=== PATIENT | male | born 1940 | race Caucasian/White ===

== ENCOUNTER 2016-02-27 10:36 | Day surgery (SDC) | payer MEDICARE, OTHER ==
[2016-02-21 15:20] VITALS: BMI 31.7
[~2016-02-27 10:36] MED LIST: ALBUTEROL NEB (CONC) 2.5 MG/0.5 ML INHALATION ONE; ATROPINE SULFATE 0.4 MG/ML 1 ML VIAL IM ONE; LACTATED RINGERS 1,000 ML IV ONE; LIDOCAINE 2% (PF) 20 MG/ML 10ML INHALATION ONE; Pre Op ABX Message 1 EACH MISC MISCELLANE ONE
[2016-02-27 11:18] VITALS: RESP 18; TEMP 97
[2016-02-27 11:26] LABS: Glucose,Whole Blood 161 mg/dL (75-99)
[2016-02-27] MEDS: LACTATED RINGERS 1,000 ML IV SCH ×2 (11:27→11:56)
[2016-02-27] MEDS ORDERED: PROPOFOL 10 MG/ML 20 ML VIAL IV ONE (11:57)
[2016-02-27] MEDS ORDERED: LIDOCAINE 1% INJ 10MG/ML (20 ML MDV) ONE (11:57)
[2016-02-27] MEDS ORDERED: LIDOCAINE 2% INJ 20 MG/ML INTRATRACH ONE (12:07)
[2016-02-27 12:41] VITALS: BP 117/72; PULSE 90
--- NOTE | 2016-02-27 21:35 | PCN ---
DATE OF PROCEDURE: PROCEDURE: Bronchoscopy, airway examination and therapeutic lavage without bronchoalveolar lavage. PREOPERATIVE DIAGNOSIS: Possible right tracheal lesion. POSTOPERATIVE DIAGNOSIS: Possible right tracheal lesion. There was informed consent. There was universal timeout. WALLPAPER PRINTER HELPER provided IV conscious sedation. After the patient was adequately sedated and being fully monitored, the bronchoscope was inserted through the right nostril. It passed through the right nasopharynx into the oropharynx. The hypopharynx was identified and topicalized. The hypopharyngeal structures, including the anterior commissure, true cords, false cords, arytenoids, piriform sinuses, right and left valleculae and epiglottis all appeared normal. We took pictures. We saw nothing in the area of the hypopharynx of any suspicion. Next, after topicalization, the bronchoscope was pushed through the glottic opening into the trachea. The trachea was thoroughly evaluated. There was no lesion noted. There was some indication that there might be a tracheal lesion on the right side. There was nothing seen there. We looked very thoroughly in the subglottic region. The rest of the trachea was normal. Tracheal kevin was normal. Right and left mainstem were topicalized. The right upper lobe and its 3 segments, the right middle lobe and its 2 segments, the right lower lobe and its 5 segments, the left upper lobe proper and its 2 segments, the lingula and its 2 segments, and the left lower lobe and its 4 segments were all normal. There were minimal secretions. There was no dominant mass or tumor. The mucosa was normal. There was no erythema or hyperemia. No BAL was done. The patient tolerated the procedure well and the bronchoscope was withdrawn. On the way out, though, we again looked at the trachea and the vocal cords and hypopharynx, and again found nothing.
== END 2016-02-27 13:17 | disposition home or self-care (01) ==
LOC: ORWHC2ENDO 10:36
PROVIDERS: ATTEND Internal Medicine Critical Care Medicine
DX: J39.8 Other specified diseases of upper respiratory tract (principal); I10 Essential (primary) hypertension; E11.9 Type 2 diabetes mellitus without complications; N40.0 Benign prostatic hyperplasia without lower urinary tract symptoms; M10.9 Gout, unspecified; Z85.038 Personal history of other malignant neoplasm of large intestine; Z79.84 Long term (current) use of oral hypoglycemic drugs; Z79.899 Other long term (current) drug therapy; Z87.891 Personal history of nicotine dependence
CPT/HCPCS: 94640; 31622; J2001 ×3; J0461; J2704; 31624; 99153

== ENCOUNTER → 2022-02-18 | Outpatient (CLI) | payer MEDICARE ==
--- NOTE | 2022-02-18 08:51 | CT ---
EXAMINATION TYPE: CT chest abdomen wo con DATE OF EXAM: 02/18/2022 COMPARISON: 01/05/2016 HISTORY: 81-year-old male R63.4, R94.4, abnormal weight loss TECHNIQUE: Contiguous axial scanning of the chest and abdomen without IV contrast. Coronal and sagitt al reconstructions performed. CT DLP: 692.4 mGycm Automated exposure control for dose reduction was used. FINDINGS: CHEST: Heart normal size without pericardial effusion. Scattered three-vessel coronary artery calcifications are present. Mild episodic arch calcifications which can been charged with a branching anatomy. The patient's left arm is down. There is degenerative change in both shoulders. Atrophy of the right infraspinatus muscle suggesting rotator cuff tear. No thoracic lymphadenopathy by CT size criteria. Prominent dependent atelectasis. Mild centrilobular emphysema. No consolidation or pleural effusion. ABDOMEN: There is a small hiatal hernia. Noncontrast images of the liver, gallbladder, adrenal glands, left ki dney, spleen, and pancreas show no gross abnormality. There is some mild thickening and possible that stranding along the second portion of the duodenum wh ich should be correlated clinically such as for underlying duodenitis or peptic ulcer disease. Direct visualization clinically indicated. Previous ventral abdominal wall mesh repair. Mild atherosclerotic calcifications throughout the abdominal aorta without aneurysm. No dilated small bowel, free fluid, or free air. No mesenteric or retroperitoneal lymphadenopathy. Normal appendix. Moderate stool burden. No pericolic inflammatory change. Pelvis not imaged. BONES: DISH within the mid and lower thoracic spine. Advanced spondylotic change throughout the lumbar spine with degenerative disc disease, Baastrup's disease, and hypertrophic facet arthropathy throughout. D egenerative grade 1 retrolisthesis L1-L2. There is moderate focal spinal canal stenoses L1-L2, L2-L3, L4-L5, and L5-S1. IMPRESSION: CHEST: 1. COPD WITH MILD EMPHYSEMA. CAD WITH 3 VESSEL CORONARY ARTERY CALCIFICATIONS. 2. MILD DEPENDENT ATELECTASIS IN THE LUNGS. NO ACUTE PULMONARY PROCESS. 3. DEGENERATIVE CHANGE AT BOTH GLENOHUMERAL JOINTS. SUSPECT CHRONIC FULL-THICKNESS TEAR OF THE RIGHT INFRASPINATUS TENDON. ABDOMEN: 4. Small hiatal hernia and moderate stool burden. Pelvis not imaged. 5. The appearance of wall thickening and fat stranding along the second portion of the duodenum. This should be correlated clinically such as for underlying duodenitis or significant peptic ulcer diseas e. Direct visualization as clinically indicated.
== END | disposition home or self-care (01) ==
LOC: RADCTMAIN 07:28
PROVIDERS: ATTEND Family Medicine
DX: J43.9 Emphysema, unspecified (principal); I25.10 Atherosclerotic heart disease of native coronary artery without angina pectoris; J98.11 Atelectasis; K44.9 Diaphragmatic hernia without obstruction or gangrene; R63.4 Abnormal weight loss; R94.4 Abnormal results of kidney function studies; R19.5 Other fecal abnormalities
CPT/HCPCS: 71250; 74150

== ENCOUNTER → 2022-06-13 | Outpatient (CLI) | payer MEDICARE ==
[2022-06-13 09:40] LABS: Partial Thromboplastin Time 23.9 sec (22.0-30.0); Prothrombin Time 10.7 sec (9.0-12.0)
[2022-06-13 15:38] LABS: Appearance,Urine Clear (Clear); Bilirubin,Urine Negative (Negative); Blood,Urine Negative (Negative); Color,Urine Yellow (Yellow); Ketones,Urine Negative (Negative); Nitrite,Urine Negative (Negative); Specific Gravity,Urine 1.018 (1.001-1.030)
[2022-06-13 15:45] LABS: Bacteria,Urine None Seen /HPF (None Seen)
[2022-06-13 15:55] LABS: African American GFR (CKD) 53.4 (60.0-200.0); Albumin 4.5 g/dL (3.8-4.9); Albumin/Globulin Ratio 1.42 (1.60-3.17); BUN/Creat Ratio 17.8 Ratio (12.00-20.00); Blood Urea Nitrogen 25.1 mg/dL (9.0-27.0); Calcium 10.5 mg/dL (8.7-10.3); Carbon Dioxide 23.8 mmol/L (20.0-27.5); Globulin 3.2 g/dL (1.6-3.3); Non-African American GFR(CKD) 46.1 (60.0-200.0); Potassium 4.6 mmol/L (3.5-5.5); Total Bilirubin 0.3 mg/dL (0.30-1.20); Total Protein 7.6 g/dL (6.2-8.2)
[2022-06-13 16:26] LABS: HCT 45.3 % (39.6-50.0); HGB 14.4 g/dL (13.0-17.0); MCH 29.9 pg (27.0-32.0); MCHC 31.8 g/dL (32.0-37.0); MCV 94.2 fL (80.0-97.0); Mean Platelet Volume 11.2 fL (9.5-12.2); NRBC Per 100 WBC 0 /100 WBCS (0.0-0.0); Platelet Count 219 X 10*3/uL (140-440); RBC 4.81 X 10*6/uL (4.40-5.60); RDW 14.4 % (11.5-14.5)
== END | disposition home or self-care (01) ==
LOC: LABPAT 08:36
PROVIDERS: ATTEND Orthopaedic Surgery Sports Medicine
DX: Z01.812 Encounter for preprocedural laboratory examination (principal); M19.012 Primary osteoarthritis, left shoulder
CPT/HCPCS: 80053; 81001; 85027; 85610; 85730; 87070

== ENCOUNTER 2022-07-11 05:40 | Day surgery (SDC) | payer MEDICARE ==
[2022-07-11] MEDS ORDERED: DEXAMETHASONE SOD PHOSPHATE 4 MG/ML 1 ML VIAL IV ONE (05:51)
[2022-07-11] MEDS ORDERED: fentaNYL (PF) 50 MCG/ML 2 ML AMP IV PRN (05:51)
[2022-07-11] MEDS ORDERED: ONDANSETRON 4 MG/2 ML VIAL IVP ONE (05:51)
[2022-07-11] MEDS: LACTATED RINGERS 1,000 ML IV SCH ×3 (05:59→17:20)
[2022-07-11 06:22] LABS: Glucose,Whole Blood 127 mg/dL (70-110)
[2022-07-11] MEDS ORDERED: MIDAZOLAM 2 MG/2 ML VIAL IVP ONE (06:36)
[2022-07-11] MEDS ORDERED: PHENYLEPHRINE-0.9% NACL SYG 1,000 MCG/10 ML SYRINGE ONE (07:10)
[2022-07-11] MEDS ORDERED: GLYCOPYRROLATE 0.2 MG/ML 2 ML VIAL ONE (07:10)
[2022-07-11] MEDS ORDERED: SODIUM CHLORIDE 0.9% 100 ML BAG ONE (07:10)
[2022-07-11] MEDS ORDERED: ceFAZolin 1,000 MG VIAL ONE (07:10)
[2022-07-11] MEDS ORDERED: ePHEDrine 50 MG/ML 1 ML VIAL ONE (07:10)
[2022-07-11] MEDS ORDERED: LIDOCAINE 2% INJ 20 MG/ML (2 ML VIAL) ONE (07:10)
[2022-07-11] MEDS ORDERED: PROPOFOL 10 MG/ML 20 ML VIAL IV ONE (07:10)
[2022-07-11] MEDS ORDERED: NEOSTIGMINE 1 MG/ML 10 ML VIAL ONE (07:10)
[2022-07-11] MEDS ORDERED: SUCCINYLCHOLINE CHLORIDE 200 MG/10 ML VIAL IV ONE (07:10)
[2022-07-11] MEDS ORDERED: TRANEXAMIC ACID IN NACL,ISO-OS 1,000 MG/100 ML BAG ONE (07:10)
[2022-07-11] MEDS ORDERED: ROCURONIUM 10 MG/ML (5 ML VIAL) IV ONE (07:10)
[2022-07-11] MEDS ORDERED: DEXAMETHASONE SOD PHOSPHATE 4 MG/ML 1 ML VIAL ONE (07:10)
[2022-07-11] MEDS ORDERED: PROCHLORPERAZINE SUPPOSITORY 25 MG SUPP RECTAL PRN (07:16)
[2022-07-11] MEDS ORDERED: METOCLOPRAMIDE 5 MG/ML 2 ML VIAL IVP PRN (07:16)
[2022-07-11] MEDS ORDERED: diphenhydrAMINE 25 MG CAP PO PRN (07:16)
[2022-07-11] MEDS ORDERED: HYDROcodone/APAP 5-325MG 1 EACH TAB PO PRN (07:16)
[2022-07-11] MEDS ORDERED: SENNOSIDES-DOCUSATE SODIUM 1 EACH TAB PO PRN (07:16)
[2022-07-11] MEDS ORDERED: HYDROmorphone 0.5 MG/0.5 ML SYRINGE IVP PRN ×3 (07:16)
[2022-07-11] MEDS ORDERED: ONDANSETRON 4 MG/2 ML VIAL IVP PRN (07:16)
[2022-07-11] MEDS ORDERED: HYDROcodone/APAP 10-325MG 1 EACH TAB PO PRN (07:21)
[2022-07-11] MEDS ORDERED: TRANEXAMIC ACID 1,000 MG in SODIUM CHLORIDE 0.9% 100 ML IVPB ONE ×2 (07:22→07:23)
[2022-07-11] MEDS ORDERED: VANCOMYCIN 1,000 MG VIAL MISCELLANE ONE (08:10)
[2022-07-11 09:13] LABS: Glucose,Whole Blood 155 mg/dL (70-110)
--- NOTE | 2022-07-11 09:50 | XR ---
EXAMINATION TYPE: XR shoulder limited LT DATE OF EXAM: 07/11/2022 COMPARISON: NONE HISTORY: 81-year-old male postoperative evaluation TECHNIQUE: Single AP view FINDINGS: Postsurgical change with reverse left total shoulder arthroplasty. Both glenosphere and hum eral stem components of the prosthesis are well seated. Alignment appears appropriate. Soft tissue ai r related to recent operation. There is patchy left basilar opacity noted. IMPRESSION: 1. Uncomplicated postoperative appearance reverse left total shoulder arthroplasty. 2. Patchy left basilar atelectasis versus infiltrate. Underlying effusion not excluded. Consider dedi cated chest radiograph especially if symptomatic.
[2022-07-11 11:29] LABS: Glucose,Whole Blood 167 mg/dL (70-110)
--- NOTE | 2022-07-11 13:02 | OP ---
OPERATIVE REPORT DATE OF SERVICE : 07/11/2022 CABLE TESTER: Arya Jackson PA-C PREOPERATIVE DIAGNOSIS: Left shoulder advanced rotator cuff arthropathy. POSTOPERATIVE DIAGNOSIS: Left shoulder advanced rotator cuff arthropathy. PROCEDURE PERFORMED: Left reverse total shoulder arthroplasty. ANESTHESIA: General endotracheal. ESTIMATED BLOOD LOSS: 100 mL. DRAINS: None. COMPLICATIONS: None apparent. DISPOSITION: Postanesthesia care unit. INDICATIONS: Gregg is a very pleasant 81-year-old male with longstanding left shoulder pain. Workup including x-rays, MRI revealed advanced rotator cuff arthropathy of the left shoulder. At this point, it is felt that he has failed conservative management. He would like to proceed with operative intervention. The risks of procedure were discussed with him in detail. These risks include but are not limited to risk of infection, nerve damage, bleeding, pain, instability in the shoulder, loosening of the implants, and deep infection. There is also a small risk of deep vein thrombosis which could lead to fatal pulmonary embolism. The patient understood the risks. All of his questions with regard to the risks of procedure were answered to his satisfaction. Appropriate informed consent was obtained. DESCRIPTION OF PROCEDURE: The patient was identified in preoperative holding area. Surgical site was marked by both the patient and myself. He was given 2 g of Ancef IV for prophylactic purposes. He was then transported to the operative suite. He was placed supine on the operating room table. A general anesthetic was then administered and dosed per the Anesthesia Department without apparent complication. An examination under anesthesia was then performed of the left shoulder. He had elevation to 100 degrees. External rotation to side was 30 degrees. The patient was then placed into the beach chair position well-padded in preparation for surgery. Great care was taken to ensure the cervical spine was in neutral alignment, well-padded and maintained that way throughout the operative procedure. Great care was also taken to ensure that his legs were appropriately padded as well. The patient's left upper extremity was then prepped and draped in usual sterile fashion. Standard surgical pause was undertaken to ensure that we were operating the correct site and that appropriate preoperative antibiotics were given. All staff in room were in agreement, and we proceeded. The acromion AC joint clavicle and coracoid were marked with a surgical pen. A planned incision starting at the level of clavicle and extending distally over the deltopectoral interval approximately 1 cm lateral to the coracoid was marked with a surgical pen. The incision was then made with a 10-blade scalpel. Dissection was carried down sharply to the deltoid fascia. The deltopectoral was then identified at the level of clavicle. A small band retractor was then placed onto the proximal deltoid. I then released the deltoid fascia on the lateral aspect of the cephalic vein. The cephalic vein was preserved and left in its bed medially. The cephalic vein was protected throughout the entire case. I then identified the clavipectoral fascia. This was incised proximally to the level of the coracoacromial ligament. The coracoacromial ligament was then left intact. I then used my finger to spread the interval between the conjoint tendon of the subscapularis. I felt for the axillary nerve which was readily palpable. He had significant scarring in the subdeltoid and subacromial spaces. I then cleared the spaces of bursal and scar tissue. I then utilized a brown retractor to hold the deltoid and exposed the humeral head. I then proceeded to release the subscapularis in the anterior inferior shoulder capsule. His humeral head was almost completely devoid of any attachment of the rotator cuff. The subscapularis was also chronically torn and retracted. The chronic long head of the biceps tendon ruptured as well. I then released through the rotator interval. This was released to the base of the coracoid and then out laterally. The anterior capsule was then released. The capsule release extended distally in a lazy-S fashion approximately 1 cm medial to the bicipital groove. I then continued to release the capsule along the inferior neck in a vertical fashion to approximately 6 o'clock position. Great care was taken to ensure that the capsule was always visualized as it was released to avoid injuring the axillary nerve. I then brought a Lara edge inker heels with the arm externally rotated and abducted. I continued to release the capsule inferomedially to the 4 o'clock position. He had very minimal inferior osteophytes, but these were not removed as well. This was done with a rongeur. I then proceeded with preparation of the humerus. I removed all the goat's rose osteophytes. I then removed the subchondral plate from the superior aspect of the humeral head utilizing a large rongeur. I then used a starting reamer to gain access to the humeral canal. This was 1 cm medial to the rotator cuff insertion, 1 cm posterior to the bicipital groove. I then prepared the humeral canal with hand reaming. I started with a 6 mm reamer and incrementally increased in 2 mm increments until firm resistance was encountered at 14 mm. The reamer handle was then left in place. I then utilized a humeral resection guide. This was set at 30 degrees of retrotorsion. The cutting block was then set at the previous insertion of rotator cuff. I then proceeded to osteotomize the humeral head with an oscillating saw. I removed the resection guide and then completed the osteotomy. I then proceeded with trial stem placement. I broached starting with a size 8 broach up to a 14 mm broach. The 14 mm broach was then left in place. The bone hook was then used to pull the humerus out laterally. I inspected the joint for any loose bodies. There were not any loose bodies noted. Again, the proximal humerus was nearly completely devoid of any rotator cuff tissue. The Bhattman retractor was then placed on the posterior glenoid rim. The arm was placed approximately 80 degrees of abduction and in slight flexion on the Lara stand. I then proceeded to remove the hypertrophic labrum to definitively identify the actual glenoid. The mini base plate guide was then placed and flushed against the glenoid. The starting pin was then placed in the center of the glenoid with a 10 degrees inferior tilt. I then reamed over the starting pin utilizing the mini base plate reamer. Minimally reaming was done as possible to preserve as much subchondral bone as possible. I then placed the mini base plate into the glenoid. This was a [employer] mini base plate. I then placed a 30 mm central screw. The central screw had excellent purchase in bone. I was able to rotate the scapula through the screwdriver when the screw was firmly seated. I then proceeded to place the peripheral locking screws. The inferior screw was a 25 mm screw. The anterior, posterior and superior screws were all 15 mm locking screws. I then had the indirect sales representative open a 36 mm glenosphere. This slightly offset inferiorly. The Jackson taper was dried and the glenosphere was impacted onto a dry Jackson taper onto the mini base plate. I then proceeded to trial with the real glenosphere in. A standard tray and standard poly were then placed on the trial stem. The shoulder was reduced. It was mildly difficult reduction. It was stable throughout a full range of motion. The axillary nerve was palpated and was intact. There was no impingement noted. The conjoint tendon did not have any undue tension on it. The shoulder was then redislocated. The shoulder was then thoroughly irrigated with sterile saline solution with antibiotic added via pulsed lavage. I also used the antiseptic solution at this time. Had the indirect sales representative open a size 14 [employer] mini stem, a standard tray and a standard poly. The real stem was then impacted into the humeral canal in approximately 30 degrees of retrotorsion. The Jackson taper was dried and then the poly tray and polyethylene were impacted on the dried Jackson taper onto the real stem. The shoulder was again reduced. Again, it was a mildly difficult reduction. It was very stable throughout a full range of motion. The axillary nerve was again palpated and found to be intact. There was not any undue tension on the conjoint tendon. At this point, we proceeded with closure. The wound was again thoroughly irrigated with sterile saline solution with antibiotic added via pulse lavage. The remaining antiseptic solution was then utilized. Approximately 500 mg of vancomycin powder was then placed deep. The deltopectoral was then reapproximated with 0 Vicryl interrupted suture. The subcutaneous tissue was again thoroughly irrigated with sterile saline solution and antibiotic added via pulse lavage. The remaining 500 mg of vancomycin powder was placed subcutaneously. The subcutaneous tissue was then closed with 2-0 Vicryl interrupted suture. The skin was closed with a running 3-0 Quill suture. Dermabond was applied to the incision. Sterile dressing was applied. The patient's right upper extremity was then placed into a standard sling. All sponge and needle counts were deemed correct prior to closure. The patient tolerated the procedure without apparent complication. He was transferred to the recovery room in stable condition. MMODL / IJN: [id number] /
--- NOTE | 2022-07-11 17:23 | P.ANPRN ---
Procedure Note - Anesthesia - Nerve Block Performed Left Interscalene Single Time Out Performed: Yes Date of Procedure: 07/11/22 Procedure Start Time: 06:35 Procedure Stop Time: 06:40 Location of Patient: PreOp Indication: Acute Post-Operative Pain, Requested by Surgeon Sedation Type: Sedate with meaningful contact maintained Preparation: Sterile Prep Position: Supine Needle Types: Pajunk Needle Gauge: 21 Ultrasound used to visualize needle placement: Yes Ultrasound used to observe medication spread: Yes Blood Aspirated: No Pain Paresthesia on Injection Noted: No Resistance on Injection: Normal Image Stored and Saved: Yes Events: Uneventful and Well Tolerated (Ropivacaine 0.5% 20 mL plus dexamethasone 4 mg)
[2022-07-11] MEDS: allopurinoL 300 MG TAB PO SCH (17:29)
[2022-07-11] MEDS ORDERED: DEXTROSE 50% SYRINGE 50 ML IVP PRN ×2 (19:13)
[2022-07-11 19:42] LABS: Glucose,Whole Blood 272 mg/dL (70-110)
[2022-07-11] MEDS: INSULIN ASPART (NovoLOG) 100 UNIT/ML VIAL SQ SCH (19:58)
[2022-07-11] MEDS ORDERED: LOSARTAN 50 MG TAB PO SCH (21:00)
[2022-07-11] MEDS ORDERED: FINASTERIDE 5 MG TAB PO SCH (21:00)
[2022-07-11] MEDS: HYDROcodone/APAP 10-325MG 1 EACH TAB PO PRN (23:10)
[2022-07-12 06:25] LABS: Glucose,Whole Blood 218 mg/dL (70-110)
[2022-07-12] MEDS: HYDROcodone/APAP 10-325MG 1 EACH TAB PO PRN (06:56)
[2022-07-12] MEDS: INSULIN ASPART (NovoLOG) 100 UNIT/ML VIAL SQ SCH ×2 (06:57→12:11)
[2022-07-12] MEDS: LACTATED RINGERS 1,000 ML IV SCH ×2 (07:34→07:35)
[2022-07-12 08:11] VITALS: BP 124/71; PULSE 94; RESP 16; TEMP 98.1
[2022-07-12] MEDS: allopurinoL 300 MG TAB PO SCH (08:30)
--- NOTE | 2022-07-12 08:48 | P.CONS ---
History of Present Illness - Reason for Consult Consult date: 07/12/22 - Chief Complaint Left shoulder degenerative disease. - History of Present Illness This is an 81-year-old white male with known history of left shoulder degenerative disease with hernia underlying history of well-controlled type 2 diabetes who is seen's is seen postop for medical management. Shoulder repair was done the patient stabilizing. No fever or chills. Pain is nominal. No new voiding difficulties but he did have postoperative urinary retention. Review of Systems Constitutional: Denies chills, Denies fever Ears, nose, mouth and throat: Denies headache, Denies sore throat Cardiovascular: Denies chest pain, Denies shortness of breath Respiratory: Denies cough Gastrointestinal: Denies abdominal pain, Denies diarrhea, Denies nausea, Denies vomiting Past Medical History Past Medical History: Cancer, Diabetes Mellitus, Hearing Disorder / Deafness, Hypertension, Osteoarthritis (OA), Prostate Disorder Additional Past Medical History / Comment(s): gout, "weak vocal cords", hx colon cancer History of Any Multi-Drug Resistant Organisms: None Reported Past Surgical History: Bowel Resection, Hernia Repair, Joint Replacement Additional Past Surgical History / Comment(s): lt hip replacement, left shoulder 07/11/2022 Past Anesthesia/Blood Transfusion Reactions: No Reported Reaction Past Psychological History: No Psychological Hx Reported Smoking Status: Former smoker Past Alcohol Use History: Occasional Additional Past Alcohol Use History / Comment(s): smoked 10-15 years 1ppd quit 1983 Past Drug Use History: None Reported - Past Family History Mother Family Medical History: No Reported History Medications and Allergies Home Medications Medication Instructions Recorded Confirmed Type Candesartan [Atacand] 32 mg PO HS 02/21/16 07/08/22 History Finasteride [Proscar] 5 mg PO HS 02/21/16 07/08/22 History Saxagliptin HCl [Onglyza] 5 mg PO DAILY 02/21/16 07/08/22 History allopurinoL [Zyloprim] 300 mg PO DAILY 02/21/16 07/08/22 History Acetaminophen [Tylenol Extra 500 mg PO DIRECTED PRN 05/02/22 07/08/22 History Strength] Fenofibrate 160 mg PO DAILY 05/02/22 07/08/22 History Multivit-Min/FA/Lycopen/Lutein 1 each PO DAILY 03/09/23 05/15/23 History [Centrum Silver Tablet] Docusate [Colace] 100 mg PO BID #60 capsule 07/11/22 Rx Doxycycline Hyclate 100 mg PO BID #10 tab 07/11/22 Rx Ondansetron [Zofran] 4 mg PO Q8HR PRN #21 tab 07/11/22 Rx Allergies Allergy/AdvReac Type Severity Reaction Status Date / Time sulfamethoxazole AdvReac affected Verified 07/11/22 07:13 [From Bactrim] eyesight trimethoprim [From Bactrim] AdvReac affected Verified 07/11/22 07:13 eyesight Physical Exam Vitals: Vital Signs Temp Pulse Resp BP Pulse Ox 07/12/22 07:03 98.1 F 94 16 124/71 95 07/12/22 02:00 97.7 F 79 18 106/67 94 L 07/11/22 20:00 97.6 F 92 18 155/79 95 07/11/22 13:48 98.3 F 103 H 16 127/73 95 07/11/22 11:31 97.8 F 83 15 135/72 97 07/11/22 11:00 87 16 127/62 100 07/11/22 10:45 82 16 127/60 99 07/11/22 10:30 82 16 124/59 100 07/11/22 10:15 84 16 119/56 100 07/11/22 09:59 71 16 120/57 99 07/11/22 09:44 70 16 120/60 100 07/11/22 09:29 80 16 125/58 100 07/11/22 09:14 88 16 115/59 100 07/11/22 08:59 97.0 F L 88 12 122/58 100 Intake and Output 07/11/22 07/12/22 07/12/22 22:59 06:59 14:59 Output Total 2150 Balance -2150 Output: Urine 2150 Straight 1075 Other: # Voids 1 - Constitutional General appearance: cooperative, no acute distress - EENT Eyes: EOMI - Neck Neck: no lymphadenopathy - Respiratory Respiratory: bilateral: CTA - Cardiovascular Rhythm: regular Heart sounds: normal: S1, S2 Abnormal Heart Sounds: no S3 Gallop - Gastrointestinal General gastrointestinal: soft, no tenderness - Neurologic Neurologic: CNII-XII intact Results Labs: Abnormal Lab Results - Last 24 Hours (Table) 07/11/22 07/11/22 07/11/22 Range/Units 09:12 11:28 19:36 POC Glucose (mg/dL) 155 H 167 H 272 H (70-110) mg/dL 07/12/22 Range/Units 06:24 POC Glucose (mg/dL) 218 H (70-110) mg/dL Assessment and Plan (1) Gout Current Visit: Yes Status: Acute Code(s): M10.9 - GOUT, UNSPECIFIED SNOMED Code(s): 97349719 (2) Type 2 diabetes mellitus Current Visit: Yes Status: Acute Code(s): E11.9 - TYPE 2 DIABETES MELLITUS WITHOUT COMPLICATIONS SNOMED Code(s): 67371712 (3) Hypertension Current Visit: Yes Status: Acute Code(s): I10 - ESSENTIAL (PRIMARY) HYPERTENSION SNOMED Code(s): 57842726 (4) Osteoarthritis of left shoulder Current Visit: Yes Status: Acute Code(s): M19.012 - PRIMARY OSTEOARTHRITIS, LEFT SHOULDER SNOMED Code(s): 473233168343496 Plan: Reconcile medications. Pain control per orthopedics. Postoperative urinary retention related to anesthesia most likely. Anticipate discharge later today if stable. We'll continue follow as necessary
[2022-07-12] MEDS ORDERED: FENOFIBRATE 160 MG TAB PO SCH (09:00)
[2022-07-12] MEDS ORDERED: MULTIVITAMINS, THERA 1 EACH TAB PO SCH (09:00)
[2022-07-12 11:17] LABS: Glucose,Whole Blood 206 mg/dL (70-110)
[2022-07-12 15:21] LABS: Basophils # (A) 0.02 X 10*3/uL (0.00-0.10); Basophils % (A) 0.1 %; Eosinophils # (A) 0 X 10*3/uL (0.04-0.35); Eosinophils % (A) 0 %; HCT 42.1 % (39.6-50.0); HGB 14.1 g/dL (13.0-17.0); Immature Grans, Automated 0.5 %; Lymphocytes # (A) 0.94 X 10*3/uL (0.90-5.00); Lymphocytes % (A) 6.3 %; MCH 31.2 pg (27.0-32.0); MCHC 33.5 g/dL (32.0-37.0); MCV 93.1 fL (80.0-97.0); Mean Platelet Volume 11.1 fL (9.5-12.2); Monocytes # (A) 0.97 X 10*3/uL (0.20-1.00); Monocytes % (A) 6.5 %; NRBC Per 100 WBC 0 /100 WBCS (0.0-0.0); Neutrophils % (A) 86.6 %; Platelet Count 208 X 10*3/uL (140-440); RBC 4.52 X 10*6/uL (4.40-5.60); RDW 14.6 % (11.5-14.5)
== END 2022-07-12 13:59 | disposition home or self-care (01) ==
LOC: OR 05:40 → 4SSUR 11:09 → OR 07-12 13:59
PROVIDERS: ATTEND Orthopaedic Surgery Sports Medicine
DX: M19.012 Primary osteoarthritis, left shoulder (principal); M75.122 Complete rotator cuff tear or rupture of left shoulder, not specified as traumatic; I10 Essential (primary) hypertension; E11.9 Type 2 diabetes mellitus without complications; M10.9 Gout, unspecified; Z85.038 Personal history of other malignant neoplasm of large intestine; Z96.642 Presence of left artificial hip joint; Z87.891 Personal history of nicotine dependence; F10.20 Alcohol dependence, uncomplicated; Z79.899 Other long term (current) drug therapy; Z79.84 Long term (current) use of oral hypoglycemic drugs; G89.18 Other acute postprocedural pain
CPT/HCPCS: 23472; 64415; 85025; 83036; 73020; C1776; S0138; J2250; J3370; J1100; J0690; J2405

== ENCOUNTER 2022-07-29 12:46 | Observation (INO) | payer MEDICARE ==
[2022-07-29] MEDS ORDERED: LACTATED RINGERS 1,000 ML IV ONE ×2 (13:14→18:23)
[2022-07-29] MEDS ORDERED: ONDANSETRON 4 MG/2 ML VIAL ONE (13:33)
[2022-07-29] MEDS ORDERED: DEXAMETHASONE SOD PHOSPHATE 4 MG/ML 1 ML VIAL IVP ONE (13:35)
[2022-07-29 13:45] LABS: Glucose,Whole Blood 109 mg/dL (70-110)
[2022-07-29] MEDS ORDERED: TRANEXAMIC ACID 1,000 MG in SODIUM CHLORIDE 0.9% 100 ML IVPB STA ×2 (15:10→15:54)
[2022-07-29] MEDS ORDERED: PROPOFOL 10 MG/ML 20 ML VIAL IV ONE (15:50)
[2022-07-29] MEDS ORDERED: TRANEXAMIC ACID IN NACL,ISO-OS 1,000 MG/100 ML BAG ONE (15:50)
[2022-07-29] MEDS ORDERED: LIDOCAINE 2% INJ 20 MG/ML (2 ML VIAL) ONE (15:50)
[2022-07-29] MEDS ORDERED: GLYCOPYRROLATE 0.2 MG/ML 2 ML VIAL ONE (15:50)
[2022-07-29] MEDS ORDERED: SUCCINYLCHOLINE CHLORIDE 200 MG/10 ML VIAL IV ONE (15:50)
[2022-07-29] MEDS ORDERED: ROCURONIUM 10 MG/ML (5 ML VIAL) IV ONE (15:50)
[2022-07-29] MEDS ORDERED: PHENYLEPHRINE-0.9% NACL SYG 1,000 MCG/10 ML SYRINGE ONE (15:50)
[2022-07-29] MEDS ORDERED: fentaNYL (PF) 50 MCG/ML 2 ML AMP ONE (15:50)
[2022-07-29] MEDS ORDERED: NEOSTIGMINE 1 MG/ML 10 ML VIAL ONE (15:50)
[2022-07-29] MEDS ORDERED: ceFAZolin 1,000 MG in SODIUM CHLORIDE 0.9% 1,000 ML IRRIGATION ONE (16:31)
[2022-07-29] MEDS ORDERED: VANCOMYCIN 1,000 MG VIAL MISCELLANE ONE (16:55)
[2022-07-29] MEDS ORDERED: SENNOSIDES-DOCUSATE SODIUM 1 EACH TAB PO PRN (17:29)
[2022-07-29] MEDS ORDERED: diphenhydrAMINE 25 MG CAP PO PRN (17:29)
[2022-07-29] MEDS ORDERED: HYDROmorphone 0.5 MG/0.5 ML SYRINGE IVP PRN ×2 (17:29)
[2022-07-29] MEDS ORDERED: ONDANSETRON 4 MG/2 ML VIAL IVP PRN (17:29)
[2022-07-29] MEDS ORDERED: METOCLOPRAMIDE 5 MG/ML 2 ML VIAL IVP PRN (17:29)
[2022-07-29] MEDS ORDERED: HYDROcodone/APAP 7.5-325MG 1 EACH TAB PO PRN (17:33)
[2022-07-29] MEDS: LACTATED RINGERS 1,000 ML IV SCH (18:06)
--- NOTE | 2022-07-29 18:20 | XR ---
EXAMINATION TYPE: XR shoulder limited LT DATE OF EXAM: 07/29/2022 6:12 PM INDICATION: Patient age:Male; 81 years old; Reason for study: post op; COMPARISON: 07/11/2022 TECHNIQUE: The left shoulder was examined in AP, internally rotated and scapular Y projections. FINDINGS: Left reverse shoulder arthroplasty changes hardware appears intact. Focus of gas within the joint itself is decreased from prior. No evidence of acute osseous pathology, joint dislocation, or soft tissue swelling. The remaining por tions of the visualized chest are unremarkable. IMPRESSION: Left reverse shoulder arthroplasty changes hardware appears intact. No evidence of fracture.
[2022-07-29 18:32] LABS: Glucose,Whole Blood 173 mg/dL (70-110)
[2022-07-29] MEDS: HYDROmorphone 0.5 MG/0.5 ML SYRINGE IVP PRN ×2 (18:39→22:14)
[2022-07-29 20:21] LABS: Glucose,Whole Blood 179 mg/dL (70-110)
[2022-07-29] MEDS: LOSARTAN 50 MG TAB PO SCH (22:12)
[2022-07-29] MEDS: FINASTERIDE 5 MG TAB PO SCH (22:12)
--- NOTE | 2022-07-29 23:11 | OP ---
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 PROCEDURE PERFORMED: 1. Left open reduction, reverse total shoulder arthroplasty. 2. Left reverse total shoulder arthroplasty, polyethylene exchange. ANESTHESIA: General endotracheal. ESTIMATED BLOOD LOSS: 100 mL. DRAINS: None. COMPLICATIONS: None apparent. DISPOSITION: Postanesthesia care unit. INDICATIONS: Gregg is a very pleasant 81-year-old male who underwent left reverse total shoulder arthroplasty by myself approximately 2-1/2 weeks ago. He came back to my office for routine followup. The x-ray showed that he had dissociated the glenosphere from the base plate and the shoulder was dislocated. Unfortunately, Gregg does not recall how he did this. He did say that he had pushed himself up a few times. He remarkably had very little discomfort when I saw him in the office. Recommendation was for open reduction with re-engagement of the glenosphere into the base plate. The risks of the procedure were discussed with Gregg and his family in detail. These risks include but are not limited to risk of infection, nerve damage, bleeding, pain, continued instability in the shoulder, loosening of the implant, and deep infection. There is also a very small risk of deep vein thrombosis which could lead to fatal pulmonary embolism. The patient understood these risks. All of his questions with regard to the risks of procedure were answered to his satisfaction. Appropriate informed consent was obtained. DESCRIPTION OF PROCEDURE: The patient was identified in preoperative holding area. Surgical site was marked by both the patient and myself. He was given 2 g of Ancef IV for prophylactic purposes. He was then transported to the operative suite and placed supine on the operating room table. A general anesthetic was then administered and dosed per the Anesthesia Department without apparent complication. The patient was then placed in the beach chair position well-padded in preparation for surgery. Great care was taken to ensure the cervical spine was in neutral alignment well-padded and maintained that way throughout the operative procedure. Great care was also taken to ensure that his legs were appropriately padded as well. The patient's left upper extremity was then prepped and draped in usual sterile fashion. Standard surgical pause was undertaken to ensure that we were operating the correct site and that appropriate preoperative antibiotics were given. All staff in room were in agreement, and we proceeded. The acromion AC joint clavicle and coracoid were marked with a surgical pen. The previous incision was identified. The previous incision was then opened with a 10-blade scalpel. Dissection was carried down sharply to the deltoid fascia. The 0 Vicryl sutures in the deltopectoral interval were identified readily. The deltopectoral was then opened. Once this was done, the glenosphere was just underneath the anterior deltoid. The glenosphere was then removed. I then used this brown retractor to hold and expose the proximal humerus. I then utilized the tool to remove the Jackson taper from the tray and dissociate the tray from the stem. This was fairly easily redone as well. I then put a Bhattman retractor on the posterior glenoid rim. The Lara stand was then brought in. Any scar tissue was removed from around the base plate. I had first utilized the screwdriver to ensure that the central screw was fully seated and it was not. Again, I was able to rotate the scapula through the screwdriver. I also utilized the guide as a double check to ensure that the central screw was fully seated. There was no evidence of any fracture around the glenoid. The glenosphere was in good condition. This was washed off on the back table with antiseptic solution. The Jackson taper was dried and then the glenosphere was then impacted back with a dry Jackson taper onto the base plate. I very forcefully tried to remove the glenosphere and was unable to do so once it was fully seated. I then had the medical field representative open up a new polyethylene. It was a standard poly. This was then placed back onto the tray. The Jackson taper was dried and then the tray was then impacted onto the stem. The shoulder was then reduced. Again, it was a fairly difficult reduction. It was very stable throughout a full range of motion. There was no impingement noted. There was not any undue tension on the conjoint tendon noted either. At this point, we proceeded with closure. The wound was thoroughly irrigated with sterile saline solution, antibiotic added via pulse lavage. I also utilized the IrriSept antiseptic solution at this time. Approximately 500 mg of vancomycin powder was then placed deep. The deltopectoral was then loosely closed with 0 Vicryl interrupted suture. The remaining 500 mg of vancomycin powder was placed subcutaneously. The subcutaneous tissue was then closed with 2-0 Vicryl interrupted suture and the skin was closed with a running 3-0 Quill suture. Dermabond was then applied to the incision. A sterile compressive dressing was applied. The patient's left upper extremity was then placed in a standard sling. All sponge and needle counts were deemed correct prior to closure. The patient tolerated the procedure without apparent complication. He was transferred to recovery room in stable condition. MMODL / IJN: [id number] /
[2022-07-29] MEDS: HYDROcodone/APAP 7.5-325MG 1 EACH TAB PO PRN (23:16)
[2022-07-30] MEDS: LACTATED RINGERS 1,000 ML IV SCH ×3 (00:57→23:43)
[2022-07-30 06:42] LABS: Glucose,Whole Blood 134 mg/dL (70-110)
[2022-07-30] MEDS ORDERED: TAMSULOSIN 0.4 MG CAP.ER.24H PO SCH (08:45)
--- NOTE | 2022-07-30 08:49 | P.CONS ---
History of Present Illness - Reason for Consult Consult date: 07/30/22 Medical management - Chief Complaint Left shoulder dissociation glemosphere for reverse total shoulder - History of Present Illness This is an 81-year-old male who underwent a left open reduction reverse total shoulder arthroplasty yesterday with Dr. Hebert. Patient reports the joint had popped out of the socket and required surgery. Patient is seen laying in bed this morning comfortably with minimal pain. He does have some issues with urination and was recently started on Flomax, which has helped. Will restart Flomax today. Medical history includes diabetes, hypertension, and other co nditions as noted below. Review of Systems Constitutional: Denies chills, Denies fever Cardiovascular: Denies chest pain, Denies dyspnea on exertion Respiratory: Denies cough, Denies dyspnea Gastrointestinal: Denies abdominal pain, Denies nausea Musculoskeletal: Denies arm numbness/tingling, Denies leg numbness/tingling Neurological: Denies headaches, Denies weakness Past Medical History Past Medical History: Cancer, Diabetes Mellitus, Hypertension, Prostate Disorder Additional Past Medical History / Comment(s): gout, "weak vocal cords", hx colon cancer History of Any Multi-Drug Resistant Organisms: None Reported Past Surgical History: Bowel Resection, Hernia Repair, Joint Replacement Additional Past Surgical History / Comment(s): lt hip replacement, left shoulder 07/11/2022 Past Anesthesia/Blood Transfusion Reactions: No Reported Reaction Smoking Status: Former smoker - Past Family History Mother Family Medical History: No Reported History Medications and Allergies Home Medications Medication Instructions Recorded Confirmed Type Candesartan [Atacand] 32 mg PO HS 02/21/16 07/29/22 History Finasteride [Proscar] 5 mg PO HS 02/21/16 07/29/22 History Saxagliptin HCl [Onglyza] 5 mg PO DAILY 02/21/16 07/29/22 History allopurinoL [Zyloprim] 300 mg PO DAILY 02/21/16 07/29/22 History Acetaminophen [Tylenol Extra 500 mg PO DIRECTED PRN 05/02/22 07/29/22 History Strength] Fenofibrate 160 mg PO DAILY 05/02/22 07/29/22 History Multivit-Min/FA/Lycopen/Lutein 1 each PO DAILY 05/02/22 07/29/22 History [Centrum Silver Tablet] Docusate [Colace] 100 mg PO BID #60 capsule 07/11/22 07/29/22 Rx Doxycycline Hyclate 100 mg PO BID #10 tab 07/11/22 07/29/22 Rx Ondansetron [Zofran] 4 mg PO Q8HR PRN #21 tab 07/11/22 07/29/22 Rx HYDROcodone/APAP 7.5-325MG [[place] 1 - 2 each PO Q6HR PRN #42 tab 07/12/22 07/29/22 Rx 7.5-325] Allergies Allergy/AdvReac Type Severity Reaction Status Date / Time sulfamethoxazole AdvReac affected Verified 07/11/22 07:13 [From Bactrim] eyesight trimethoprim [From Bactrim] AdvReac affected Verified 07/11/22 07:13 eyesight Physical Exam Vitals: Vital Signs Temp Pulse Pulse Pulse Resp BP BP 07/30/22 07:58 97.8 F 77 16 131/73 07/30/22 02:00 98.3 F 105 H 17 110/71 07/29/22 19:49 98.4 F 103 H 16 125/78 07/29/22 19:34 113 H 143/78 07/29/22 19:19 94 144/73 07/29/22 19:05 96 127/75 07/29/22 18:21 56 L 16 122/51 07/29/22 18:07 55 L 17 93/45 07/29/22 17:52 53 L 15 91/47 07/29/22 17:36 97.0 F L 77 14 155/68 07/29/22 13:37 96.9 F L 90 16 143/69 Pulse Ox 07/30/22 07:58 98 07/30/22 02:00 100 07/29/22 19:49 98 07/29/22 19:34 98 07/29/22 19:19 97 07/29/22 19:05 96 07/29/22 18:21 97 07/29/22 18:07 95 07/29/22 17:52 98 07/29/22 17:36 98 07/29/22 13:37 93 L Intake and Output 07/29/22 07/30/22 07/30/22 22:59 06:59 14:59 Intake Total 1001 Output Total 100 1100 Balance 901 -1100 Intake: IV 1001 Output: Urine 1100 Estimated Blood Loss 100 Other: Weight 84.2 kg - Constitutional General appearance: cooperative, no acute distress - EENT Eyes: PERRLA - Neck Neck: no lymphadenopathy, normal ROM, no rigidity - Respiratory Respiratory: bilateral: CTA - Cardiovascular Rhythm: regular Heart sounds: normal: S1, S2 - Gastrointestinal General gastrointestinal: soft, no tenderness - Integumentary Dressing to left shoulder dry and intact. - Neurologic Neurologic: CNII-XII intact - Psychiatric Psychiatric: A&O x's 3, appropriate affect, intact judgment & insight Results Labs: Abnormal Lab Results - Last 24 Hours (Table) 07/29/22 07/29/22 07/30/22 Range/Units 18:15 20:19 06:41 POC Glucose (mg/dL) 173 H 179 H 134 H (70-110) mg/dL Assessment and Plan (1) Hypertension Current Visit: No Status: Acute Code(s): I10 - ESSENTIAL (PRIMARY) HYPERTENSION SNOMED Code(s): 42299720 (2) Osteoarthritis of left shoulder Current Visit: No Status: Acute Code(s): M19.012 - PRIMARY OSTEOARTHRITIS, LEFT SHOULDER SNOMED Code(s): 546768894465481 (3) Type 2 diabetes mellitus Current Visit: No Status: Acute Code(s): E11.9 - TYPE 2 DIABETES MELLITUS WITHOUT COMPLICATIONS SNOMED Code(s): 95103252 (4) History of arthroplasty of left shoulder Current Visit: Yes Status: Acute Code(s): Z96.612 - PRESENCE OF LEFT ARTIFICIAL SHOULDER JOINT SNOMED Code(s): 9655994360071069 (5) Prostate disorder Current Visit: Yes Status: Acute Code(s): N42.9 - DISORDER OF PROSTATE, UNSPECIFIED SNOMED Code(s): 03072822 Plan: Home medications reconciled. Restart Flomax. Medically cleared for discharge when surgeon clears. Patient seen and evaluated by nurse practitioner, physician in agreement with plan
[2022-07-30] MEDS: FENOFIBRATE 160 MG TAB PO SCH (09:29)
[2022-07-30] MEDS: LINAGLIPTIN 5 MG TABLET PO SCH (09:29)
[2022-07-30] MEDS: allopurinoL 300 MG TAB PO SCH (09:29)
[2022-07-30] MEDS: HYDROcodone/APAP 7.5-325MG 1 EACH TAB PO PRN (09:29)
[2022-07-30 09:53] LABS: Basophils % (A) 0 %; Eosinophils % (A) 0 %; HCT 36.3 % (39.0-53.0); HGB 11.9 gm/dL (13.0-17.5); Lymphocytes # (A) 1.4 k/uL (1.0-4.8); Lymphocytes % (A) 13 %; MCH 31.3 pg (25.0-35.0); MCHC 32.9 g/dL (31.0-37.0); MCV 95.2 fL (80.0-100.0); Mean Platelet Volume 8.2; Monocytes # (A) 0.6 k/uL (0-1.0); Monocytes % (A) 6 %; Neutrophils # (A) 8.7 k/uL (1.3-7.7); Neutrophils % (A) 80 %; Platelet Count 248 k/uL (150-450); RBC 3.81 m/uL (4.30-5.90); WBC 10.9 k/uL (3.8-10.6)
[2022-07-30 11:36] LABS: Glucose,Whole Blood 125 mg/dL (70-110)
--- NOTE | 2022-07-30 13:36 | P.PN ---
Subjective Progress Note Date: 07/30/22 Principal diagnosis: S/P Open reduction left reverse TSA he is seen at bedside this afternoon. he is POD #1 from open reduction of left reverse TSA. He has minimal pain. He is having urinary retention however. No other complaints. No numbness Objective - Vital Signs Vital signs: Vital Signs Temp 97.8 F 07/30/22 07:58 Pulse 77 07/30/22 07:58 Resp 16 07/30/22 07:58 BP 131/73 07/30/22 07:58 Pulse Ox 98 07/30/22 07:58 FiO2 Intake & Output 07/29/22 07/30/22 07/30/22 18:59 06:59 18:59 Intake Total 1101 920 Output Total 100 1100 1600 Balance 1001 -1100 -680 Weight 84.2 kg 84.2 kg Intake: IV 1101 Intake, IV Titration 800 Amount Lactated Ringers 1,000 ml 800 @ 100 mls/hr IV .Q10H NOHEMY Rx#:[id number] Oral 120 Output: Urine 1100 Post Void Residual 1600 Estimated Blood Loss 100 - Exam Inspection shows benign surgical wound, no bleeding. NVI left upper extremity. 2+ radial pulses and cap refill in all digits. Culinary [employer] In[employer], wrist extension, sensation intact. Sling in place - Constitutional General appearance: Present: no acute distress - Labs CBC & Chem 7: 07/30/22 09:17 Labs: Abnormal Lab Results - Last 24 Hours (Table) 07/29/22 07/29/22 07/30/22 Range/Units 18:15 20:19 06:41 WBC (3.8-10.6) k/uL RBC (4.30-5.90) m/uL Hgb (13.0-17.5) gm/dL Hct (39.0-53.0) % Neutrophils # (1.3-7.7) k/uL POC Glucose (mg/dL) 173 H 179 H 134 H (70-110) mg/dL 07/30/22 07/30/22 Range/Units 09:17 11:26 WBC 10.9 H (3.8-10.6) k/uL RBC 3.81 L (4.30-5.90) m/uL Hgb 11.9 L (13.0-17.5) gm/dL Hct 36.3 L (39.0-53.0) % Neutrophils # 8.7 H (1.3-7.7) k/uL POC Glucose (mg/dL) 125 H (70-110) mg/dL Assessment and Plan (1) History of arthroplasty of left shoulder Narrative/Plan: Continue pain management, wound care, restrictions, and sling. Continue Bennett. Urology consulted. May D/C to home from orthopedic standpoint when okay with IM/Urology Current Visit: Yes Status: Acute Priority: Medium Code(s): Z96.612 - PRES ENCE OF LEFT ARTIFICIAL SHOULDER JOINT SNOMED Code(s): 8988040976329406 Time with Patient: Less than 30
--- NOTE | 2022-07-30 18:24 | P.GSCN ---
History of Present Illness Consult date: 07/30/22 Reason for Consult: Urinary retention History of present illness: This is an 81-year-old male that underwent open reduction of left reverse TSA on 07/[address] Hebert. Urology is consulted for urinary retention. Patient has had difficulty voiding post surgery and has required straight cath for a postvoid residual of 1.1 L, and subsequently a Bennett catheter was placed for urinary retention. He indicated he does have history of difficulty voiding postoperatively. He is on Flomax and Proscar at baseline. Denies any history of recurrent UTIs or kidney stones. Indicated he did have an operation approximately 2 weeks ago and had difficulty voiding but was able to eventually void without needing a Bennett catheter. Review of Systems - Constitutional Denies fever, Denies weight loss - Cardiovascular Denies chest pain, Denies shortness of breath - Gastrointestinal Reports as per HPI - Genitourinary Reports urinary retention, Denies dysuria, Denies hematuria - Neurological Denies headaches, Denies syncope Past Medical History Past Medical History: Cancer, Diabetes Mellitus, Hypertension, Prostate Disorder Additional Past Medical History / Comment(s): gout, "weak vocal cords", hx colon cancer History of Any Multi-Drug Resistant Organisms: None Reported Past Surgical History: Bowel Resection, Hernia Repair, Joint Replacement Additional Past Surgical History / Comment(s): lt hip replacement, left shoulder 07/11/2022 Past Anesthesia/Blood Transfusion Reactions: No Reported Reaction Smoking Status: Former smoker - Past Family History Mother Family Medical History: No Reported History Medications and Allergies Home Medications Medication Instructions Recorded Confirmed Type Candesartan [Atacand] 32 mg PO HS 02/21/16 07/29/22 History Finasteride [Proscar] 5 mg PO HS 02/21/16 07/29/22 History Saxagliptin HCl [Onglyza] 5 mg PO DAILY 02/21/16 07/29/22 History allopurinoL [Zyloprim] 300 mg PO DAILY 02/21/16 07/29/22 History Acetaminophen [Tylenol Extra 500 mg PO DIRECTED PRN 05/02/22 07/29/22 History Strength] Fenofibrate 160 mg PO DAILY 05/02/22 07/29/22 History Multivit-Min/FA/Lycopen/Lutein 1 each PO DAILY 05/02/22 07/29/22 History [Centrum Silver Tablet] Docusate [Colace] 100 mg PO BID #60 capsule 07/11/22 07/29/22 Rx Doxycycline Hyclate 100 mg PO BID #10 tab 07/11/22 07/29/22 Rx Ondansetron [Zofran] 4 mg PO Q8HR PRN #21 tab 07/11/22 07/29/22 Rx HYDROcodone/APAP 7.5-325MG [[place] 1 - 2 each PO Q6HR PRN #42 tab 07/12/22 07/29/22 Rx 7.5-325] Doxycycline Hyclate 100 mg PO BID #10 tab 07/30/22 Rx Allergies Allergy/AdvReac Type Severity Reaction Status Date / Time sulfamethoxazole AdvReac affected Verified 07/11/22 07:13 [From Bactrim] eyesight trimethoprim [From Bactrim] AdvReac affected Verified 07/11/22 07:13 eyesight Surgical - Exam Vital Signs Temp Pulse Resp BP Pulse Ox 96.9 F L 90 16 143/69 93 L 07/29/22 13:37 07/29/22 13:37 07/29/22 13:37 07/29/22 13:37 07/29/22 13:37 - General no distress, no pain - Eyes normal ocular movement, no pale - ENT normal nares, normal mucosa - Respiratory normal expansion, normal respiratory effort - Abdomen Abdomen: soft, non tender - Psychiatric oriented to time, oriented to person, oriented to place Results - Labs 07/30/22 09:17 Abnormal Lab Results - Last 24 Hours (Table) 07/29/22 07/29/22 07/30/22 Range/Units 18:15 20:19 06:41 WBC (3.8-10.6) k/uL RBC (4.30-5.90) m/uL Hgb (13.0-17.5) gm/dL Hct (39.0-53.0) % Neutrophils # (1.3-7.7) k/uL POC Glucose (mg/dL) 173 H 179 H 134 H (70-110) mg/dL 07/30/22 07/30/22 Range/Units 09:17 11:26 WBC 10.9 H (3.8-10.6) k/uL RBC 3.81 L (4.30-5.90) m/uL Hgb 11.9 L (13.0-17.5) gm/dL Hct 36.3 L (39.0-53.0) % Neutrophils # 8.7 H (1.3-7.7) k/uL POC Glucose (mg/dL) 125 H (70-110) mg/dL Assessment and Plan Assessment: 81-year-old male postoperative urinary retention. Patient does have underlying BPH is on Flomax and Proscar at baseline. Retention is most likely related to his BPH worsened by his recent anesthesia and surgery. -We'll increase Flomax to twice a day -Continue Proscar -Recommend discharge home with a Bennett catheter, can follow-up for a trial of void as an outpatient in 1 week. He was advised to remove his catheter 6 hours prior to his follow-up
[2022-07-30] MEDS ORDERED: ACETAMINOPHEN TAB 325 MG TAB PO PRN (19:54)
[2022-07-30] MEDS: TAMSULOSIN 0.4 MG CAP.ER.24H PO SCH (20:54)
[2022-07-30] MEDS: FINASTERIDE 5 MG TAB PO SCH (20:55)
[2022-07-30] MEDS: LOSARTAN 50 MG TAB PO SCH (20:55)
[2022-07-30 20:56] LABS: Glucose,Whole Blood 272 mg/dL (70-110)
[2022-07-30 22:02] LABS: Glucose,Whole Blood 285 mg/dL (70-110)
[2022-07-30] MEDS: INSULIN ASPART (NovoLOG) 100 UNIT/ML VIAL SQ SCH (22:16)
[2022-07-31 06:02] LABS: Glucose,Whole Blood 131 mg/dL (70-110)
[2022-07-31] MEDS: INSULIN ASPART (NovoLOG) 100 UNIT/ML VIAL SQ SCH ×2 (06:33→11:59)
[2022-07-31 07:28] VITALS: TEMP 97.6
[2022-07-31] MEDS: FENOFIBRATE 160 MG TAB PO SCH (07:39)
[2022-07-31] MEDS: TAMSULOSIN 0.4 MG CAP.ER.24H PO SCH (07:39)
[2022-07-31] MEDS: LINAGLIPTIN 5 MG TABLET PO SCH (07:39)
[2022-07-31] MEDS: allopurinoL 300 MG TAB PO SCH (07:39)
--- NOTE | 2022-07-31 08:52 | P.PN ---
Subjective Principal diagnosis: Urinary retention The patient is postop day #1 for left shoulder revision repair with postop urinary retention. He does an element of BPH. Appreciate urology input. He'll be discharged hopefully home later today with Bennett catheter Objective - Vital Signs Vital signs: Vital Signs Temp 97.6 F 07/31/22 07:27 Pulse 80 07/31/22 07:27 Resp 16 07/31/22 07:27 BP 103/66 07/31/22 07:27 Pulse Ox 99 07/31/22 07:27 FiO2 Intake & Output 07/30/22 07/31/22 07/31/22 18:59 06:59 18:59 Intake Total 920 240 Output Total 3500 2300 Balance -2579 -2059 Intake: Intake, IV Titration 800 Amount Lactated Ringers 1,000 ml 800 @ 100 mls/hr IV .Q10H NOHEMY Rx#:[id number] Oral 120 240 Output: Urine 1900 2300 Uretheral (Bennett) 1450 Post Void Residual 1600 Other: Voiding Method Indwelling Catheter Indwelling Catheter - Constitutional General appearance: Present: cooperative - EENT Ears: bilateral: normal - Neck Neck: Absent: lymphadenopathy - Respiratory Respiratory: bilateral: CTA - Cardiovascular Rhythm: regular Abnormal Heart Sounds: Absent: S3 Gallop, S4 Gallop - Gastrointestinal General gastrointestinal: Present: soft. Absent: tenderness - Labs CBC & Chem 7: 07/30/22 09:17 Labs: Abnormal Lab Results - Last 24 Hours (Table) 07/30/22 07/30/22 07/30/22 Range/Units 09:17 11:26 20:54 WBC 10.9 H (3.8-10.6) k/uL RBC 3.81 L (4.30-5.90) m/uL Hgb 11.9 L (13.0-17.5) gm/dL Hct 36.3 L (39.0-53.0) % Neutrophils # 8.7 H (1.3-7.7) k/uL POC Glucose (mg/dL) 125 H 272 H (70-110) mg/dL 07/30/22 07/31/22 Range/Units 22:01 06:01 WBC (3.8-10.6) k/uL RBC (4.30-5.90) m/uL Hgb (13.0-17.5) gm/dL Hct (39.0-53.0) % Neutrophils # (1.3-7.7) k/uL POC Glucose (mg/dL) 285 H 131 H (70-110) mg/dL Assessment and Plan (1) History of arthroplasty of left shoulder Current Visit: Yes Status: Acute Priority: Medium Code(s): Z96.612 - PRESENCE OF LEFT ARTIFICIAL SHOULDER JOINT SNOMED Code(s): 3738297684121749 (2) Prostate disorder Current Visit: Yes Status: Acute Code(s): N42.9 - DISORDER OF PROSTATE, UNSPECIFIED SNOMED Code(s): 93782832 (3) Hypertension Current Visit: No Status: Acute Code(s): I10 - ESSENTIAL (PRIMARY) HYPERTENSION SNOMED Code(s): 45109402 (4) Type 2 diabetes mellitus Current Visit: No Status: Acute Code(s): E11.9 - TYPE 2 DIABETES MELLITUS WITHOUT COMPLICATIONS SNOMED Code(s): 40675292 Plan: DC with Bennett today. Follow-up as necessary. Urology will discontinue Bennett in about 6 days. Shoulder pain is nominal.
[2022-07-31 10:59] LABS: Glucose,Whole Blood 286 mg/dL (70-110)
[2022-07-31] MEDS: LACTATED RINGERS 1,000 ML IV SCH (11:15)
[2022-07-31 15:02] VITALS: RESP 18
[2022-07-31 15:27] VITALS: BP 101/56
--- NOTE | 2022-07-31 16:02 | P.DS ---
Providers Date of admission: 07/30/22 07:12 Expected date of discharge: 07/31/22 Attending physician: Dwayne Hebert Consults: 07/29/22 17:29 Consult Physician Routine Consulting Provider: Ephraim Paulino Consult Reason/Comments: post op medical management Do you want consulting provider notified?: Yes 07/30/22 11:38 Consult Physician Routine Consulting Provider: Francisco Dodson Consult Reason/Comments: urine retention/known to Dr. Jiang Do you want consulting provider notified?: Yes Primary care physician: Ephraim Paulino - Discharge Diagnosis(es) (1) History of arthroplasty of left shoulder Patient was admitted to the OR on 07/31/22 to undergo open reduction left reverse total shoulder arthroplasty. desired to proceed with elective surgery after given informed consent. He underwent the above procedure which he tolerated well without complication. Postoperative hospital course has remained without complication with exception of urinary retention which is being addressed per urology. On day of discharge he is afebrile, vital signs stable, labs within acceptable ranges, tolerating by mouth meds and diet, positive flatus, denies abdominal pain or calf pain, pain is controlled on oral pain medication and has no new complaints. Wound is benign, neurovascular status is intact, calf is soft and nontender, abdomen soft and nontender. Review of systems is negative for numbness, tingling, fever, chills, chest pain, shortness of breath, nausea, vomiting, dizziness, headaches, slurred speech or other. Current Visit: Yes Status: Acute Priority: Medium Procedures: Open reduction left reverse TSA Patient Condition at Discharge: Good Plan - Discharge Summary Discharge Rx Participant: Yes New Discharge Prescriptions: New Doxycycline Hyclate 100 mg PO BID #10 tab No Action Finasteride [Proscar] 5 mg PO HS allopurinoL [Zyloprim] 300 mg PO DAILY Saxagliptin HCl [Onglyza] 5 mg PO DAILY Candesartan [Atacand] 32 mg PO HS Docusate [Colace] 100 mg PO BID #60 capsule Doxycycline Hyclate 100 mg PO BID #10 tab Ondansetron [Zofran] 4 mg PO Q8HR PRN #21 tab PRN Reason: Nausea HYDROcodone/APAP 7.5-325MG [[place] 7.5-325] 1 - 2 each PO Q6HR PRN #42 tab PRN Reason: Pain Fenofibrate 160 mg PO DAILY Multivit-Min/FA/Lycopen/Lutein [Centrum Silver Tablet] 1 each PO DAILY Acetaminophen [Tylenol Extra Strength] 500 mg PO DIRECTED PRN PRN Reason: Pain Discharge Medication List Candesartan [Atacand] 32 mg PO HS 02/21/16 [History] Finasteride [Proscar] 5 mg PO HS 02/21/16 [History] Saxagliptin HCl [Onglyza] 5 mg PO DAILY 02/21/16 [History] allopurinoL [Zyloprim] 300 mg PO DAILY 02/21/16 [History] Acetaminophen [Tylenol Extra Strength] 500 mg PO DIRECTED PRN 05/02/22 [History] Fenofibrate 160 mg PO DAILY 05/02/22 [History] Multivit-Min/FA/Lycopen/Lutein [Centrum Silver Tablet] 1 each PO DAILY 05/02/22 [History] Docusate [Colace] 100 mg PO BID #60 capsule 07/11/22 [Rx] Doxycycline Hyclate 100 mg PO BID #10 tab 07/11/22 [Rx] Ondansetron [Zofran] 4 mg PO Q8HR PRN #21 tab 07/11/22 [Rx] HYDROcodone/APAP 7.5-325MG [[place] 7.5-325] 1 - 2 each PO Q6HR PRN #42 tab 07/12/22 [Rx] Doxycycline Hyclate 100 mg PO BID #10 tab 07/30/22 [Rx] Follow up Appointment(s)/Referral(s): [facility], [NON-STAFF] - As Needed Francisco Dodson MD [STAFF PHYSICIAN] - 1 Week (For voiding trial. Remove catheter 6 hours prior to appt) Ephraim Paulino MD [Primary Care Provider] - 1 Week Dwayne Hebert MD [STAFF PHYSICIAN] - 08/16/22 10:20 am Patient Instructions/Handouts: *Surgery [facility] - Shoulder Arthroscopy, Bennett Catheter Placement and Care (DC), Bennett Catheter Removal (DC) Activity/Diet/Wound Care/Special Instructions: keep wound clean and dry maintain sling take meds as directed non weightbearing left upper extremity may shower in 3 days if no bleeding Per Dr. Dodson: Follow up with Urology in one week for outpatient voiding trial. Remove catheter 6 hours prior to follow up appointment. Discharge Disposition: HOME SELF-CARE
[2022-07-31 16:15] VITALS: PULSE 97
[2022-07-31 16:37] LABS: Glucose,Whole Blood 132 mg/dL (70-110)
== END 2022-07-31 17:15 | disposition home or self-care (01) ==
LOC: OR 12:46 → 4SSUR 17:25 → OR 07-30 07:12 → 4SSUR 07-30 07:12
PROVIDERS: ADMIT Orthopaedic Surgery Sports Medicine; ATTEND Orthopaedic Surgery Sports Medicine
DX: T84.028A Dislocation of other internal joint prosthesis, initial encounter (principal); Z96.612 Presence of left artificial shoulder joint; N40.1 Benign prostatic hyperplasia with lower urinary tract symptoms; R33.8 Other retention of urine; E11.9 Type 2 diabetes mellitus without complications; I10 Essential (primary) hypertension; M10.9 Gout, unspecified; M19.012 Primary osteoarthritis, left shoulder; H91.90 Unspecified hearing loss, unspecified ear; Z79.84 Long term (current) use of oral hypoglycemic drugs; Z79.899 Other long term (current) drug therapy; Z88.1 Allergy status to other antibiotic agents; Z88.2 Allergy status to sulfonamides; Z90.49 Acquired absence of other specified parts of digestive tract; Z85.038 Personal history of other malignant neoplasm of large intestine; Z96.642 Presence of left artificial hip joint; Z87.891 Personal history of nicotine dependence; Z98.890 Other specified postprocedural states
CPT/HCPCS: 23473; 85025; 73020; G0378 ×2; C1776; S0138 ×2; J3370; J0330; J1100; J2710; J0690 ×3; J2405; J3010; J2370; J2704; J1170; J2001

== ENCOUNTER 2022-08-12 10:49 | Day surgery (SDC) | payer MEDICARE ==
--- NOTE | 2022-08-12 08:03 | P.GSHP ---
History of Present Illness H&P Date: 08/12/22 Chief Complaint: Right inguinal hernia 81-year-old male with long-standing history of bulge right groin. Increase in size. More pain lately. Last seen in the office in February. Here today for elective repair. Past Medical History Past Medical History: Cancer, Diabetes Mellitus, Hypertension, Prostate Disorder Additional Past Medical History / Comment(s): gout, "weak vocal cords", hx colon cancer History of Any Multi-Drug Resistant Organisms: None Reported Past Surgical History: Bowel Resection, Hernia Repair, Joint Replacement Additional Past Surgical History / Comment(s): lt hip replacement lft shoulder replaced, Past Anesthesia/Blood Transfusion Reactions: No Reported Reaction Smoking Status: Former smoker - Past Family History Mother Family Medical History: No Reported History Medications and Allergies Home Medications Medication Instructions Recorded Confirmed Type Candesartan [Atacand] 32 mg PO HS 02/21/16 08/08/22 History Finasteride [Proscar] 5 mg PO HS 02/21/16 08/08/22 History Saxagliptin HCl [Onglyza] 5 mg PO DAILY 02/21/16 08/08/22 History allopurinoL [Zyloprim] 300 mg PO DAILY 02/21/16 08/08/22 History Acetaminophen [Tylenol Extra 500 mg PO DIRECTED PRN 05/02/22 08/08/22 History Strength] Fenofibrate 160 mg PO DAILY 05/02/22 08/08/22 History Multivit-Min/FA/Lycopen/Lutein 1 each PO DAILY 05/02/22 08/08/22 History [Centrum Silver Tablet] HYDROcodone/APAP 7.5-325MG [Pool 1 - 2 each PO Q6HR PRN #42 tab 07/12/22 08/08/22 Rx 7.5-325] Tamsulosin HCl [Flomax] 0.4 mg PO BID 08/08/22 08/08/22 History Allergies Allergy/AdvReac Type Severity Reaction Status Date / Time sulfamethoxazole AdvReac affected Verified 08/08/22 13:45 [From Bactrim] eyesight trimethoprim [From Bactrim] AdvReac affected Verified 08/08/22 13:45 eyesight Surgical - Exam Physical exam: General: Well-developed, well-nourished HEENT: Normocephalic, sclerae nonicteric Abdomen: Nontender, nondistended, incarcerated large right inguinal hernia extending to scrotum Extremities: No edema Neuro: Alert and oriented Assessment and Plan (1) Right inguinal hernia Narrative/Plan: 7-year-old male with symptomatic incarcerated right inguinal hernia. We'll proceed with open repair incarcerated right inguinal hernia with mesh. Risks of bleeding, infection, recurrence, bladder and bowel injury, numbness, nerve injury were discussed with the patient. The patient understands and wishes to proceed. Status: Acute Code(s): K40.90 - UNIL INGUINAL HERNIA, W/O OBST OR GANGR, NOT SPCF RECUR SNOMED Code(s): 448579863
[~2022-08-12 10:49] MED LIST changes: +ACETAMINOPHEN TAB 500 MG TAB PO PRN; -ALBUTEROL NEB (CONC) 2.5 MG/0.5 ML INHALATION ONE; -ATROPINE SULFATE 0.4 MG/ML 1 ML VIAL IM ONE; +HEPARIN SODIUM,PORCINE/PF 5,000 UNIT/0.5 ML SYRINGE SQ PRN; +HYDROmorphone 0.5 MG/0.5 ML SYRINGE IVP PRN; -LACTATED RINGERS 1,000 ML IV ONE; +LACTATED RINGERS 1,000 ML IV SCH; +LIDOCAINE 1% (10MG/ML) FOR IV START INTRADERMA PRN; -LIDOCAINE 2% (PF) 20 MG/ML 10ML INHALATION ONE; +ONDANSETRON 4 MG/2 ML VIAL IVP ONE; -Pre Op ABX Message 1 EACH MISC MISCELLANE ONE
[2022-08-12 11:28] LABS: Glucose,Whole Blood 112 mg/dL (70-110)
[2022-08-12 11:33] VITALS: TEMP 97.5
[2022-08-12] MEDS ORDERED: DEXAMETHASONE SOD PHOSPHATE 4 MG/ML 1 ML VIAL IVP ONE (11:33)
[2022-08-12] MEDS ORDERED: TAMSULOSIN 0.4 MG CAP.ER.24H PO ONE (12:21)
[2022-08-12] MEDS ORDERED: PHENYLEPHRINE-0.9% NACL SYG 1,000 MCG/10 ML SYRINGE ONE (12:44)
[2022-08-12] MEDS ORDERED: SUCCINYLCHOLINE CHLORIDE 200 MG/10 ML VIAL IV ONE (12:44)
[2022-08-12] MEDS ORDERED: SODIUM CHLORIDE 0.9% (PF) 10 ML VIAL ONE (12:44)
[2022-08-12] MEDS ORDERED: PROPOFOL 10 MG/ML 20 ML VIAL IV ONE (12:44)
[2022-08-12] MEDS ORDERED: ROPIVACAINE 5 MG/ML 30 ML VIAL ONE (12:44)
[2022-08-12] MEDS ORDERED: LIDOCAINE 2% INJ 20 MG/ML (2 ML VIAL) ONE (12:44)
[2022-08-12] MEDS ORDERED: fentaNYL (PF) 50 MCG/ML 2 ML AMP ONE (12:44)
--- NOTE | 2022-08-12 12:48 | P.ANPRN ---
Procedure Note - Anesthesia - Nerve Block Performed Right Erector Spinae Single Time Out Performed: Yes Date of Procedure: 08/12/22 Procedure Start Time: 12: Procedure Stop Time: 12:34 Location of Patient: PreOp Indication: Acute Post-Operative Pain, Requested by Surgeon Sedation Type: Sedate with meaningful contact maintained Preparation: Sterile Prep Position: Prone Needle Types: Pajunk Needle Gauge: 21 Ultrasound used to visualize needle placement: Yes Ultrasound used to observe medication spread: Yes Blood Aspirated: No Pain Paresthesia on Injection Noted: No Resistance on Injection: Normal Image Stored and Saved: Yes Events: Uneventful and Well Tolerated (ropi .5% 15 mL plus dexamethasone 4 mg plus normal saline 10 mL given at L2)
[2022-08-12] MEDS ORDERED: BUPIVACAINE (PF) 0.25% 30 ML VIAL SQ ONE (13:21)
[2022-08-12] MEDS ORDERED: LACTATED RINGERS 1,000 ML IV ONE (13:24)
--- NOTE | 2022-08-12 14:16 | P.OP ---
Date of Procedure: 08/12/22 Procedure(s) Performed: PREOPERATIVE DIAGNOSIS: Incarcerated right inguinal hernia POSTOPERATIVE DIAGNOSIS: Same PROCEDURE: Open repair incarcerated right inguinal hernia with mesh SURGEON: Dr. Alejandra ANESTHESIA: General OPERATIVE PROCEDURE DETAILS: Patient was placed in the operating table in the supine position and placed under general anesthesia. An oblique incision was made in the right groin. Dissection down through the subcutaneous tissues took place using electrocautery. The external oblique fascia was incised using a scalpel. This opening was lengthened using the Metzenbaum scissors. The spermatic cord was encircled with a Billy drain. The spermatic cord structures were identified and preserved. Careful dissection revealed an indirect hernia sac. This was carefully dissected back to the internal inguinal ring where it was ligated using 2 separate 0 silk stick tie sutures. A 3" x 6" Prolene mesh was cut to fit on the exposed fascia. This was sutured to the pubic tubercle the folding edge of the inguinal ligament and the conjoined tendon using interrupted 0 Vicryl sutures. A slit was created in the mesh and the mesh was wrapped around the spermatic cord and sutured back to itself. The external oblique was then reapproximated using a running 2-0 Vicryl suture. The subcutaneous tissues were reapproximated using a 3-0 Vicryl sutures. The skin was closed using 4-0 Monocryl sutures. Skin glue and sterile dressings were then applied. TYPE OF MESH USED: Prolene flat LOCATION OF MESH: [place] FIXATION: 0 Vicryl PREOPERATIVE DISCUSSION ON SMOKING CESSASTION: Yes PREOPERATIVE DISCUSSION ON MORBID OBESITY: Yes PREOPERATIVE DISCUSSION ON APPROPRIATE USE OF NARCOTIC USE: Yes PREOPERATIVE EDUCATION: Multi Modal, Smoking Cessation and Weight Loss with BMI over 35. DISPOSITION: Stable to recovery room
[2022-08-12] MEDS ORDERED: HYDROmorphone 0.5 MG/0.5 ML SYRINGE IVP ONE (14:51)
[2022-08-12 15:26] VITALS: RESP 20
[2022-08-12 15:40] VITALS: BP 167/70; PULSE 68
[2022-08-12] MEDS ORDERED: IBUPROFEN 600 MG TAB PO SCH (17:15)
[2022-08-12] MEDS ORDERED: ACETAMINOPHEN TAB 325 MG TAB PO SCH (18:00)
== END 2022-08-12 16:41 | disposition home or self-care (01) ==
LOC: OR 10:49
PROVIDERS: ATTEND Surgery
DX: K40.30 Unilateral inguinal hernia, with obstruction, without gangrene, not specified as recurrent (principal); G89.18 Other acute postprocedural pain; I10 Essential (primary) hypertension; E11.9 Type 2 diabetes mellitus without complications; M10.9 Gout, unspecified; Z85.038 Personal history of other malignant neoplasm of large intestine; Z98.890 Other specified postprocedural states; Z98.84 Bariatric surgery status; Z87.891 Personal history of nicotine dependence; Z79.84 Long term (current) use of oral hypoglycemic drugs; Z79.899 Other long term (current) drug therapy; Z88.2 Allergy status to sulfonamides; Z88.1 Allergy status to other antibiotic agents
CPT/HCPCS: 64999; 88302; 49507; C1781; J0330; J1100; J0690; J2405; J3010; J2795; J2370; J2704; J1170; J1644; J2001

== ENCOUNTER 2022-09-05 08:05 | Day surgery (SDC) | payer MEDICARE ==
[~2022-09-05 08:05] MED LIST changes: +DEXAMETHASONE SOD PHOSPHATE 4 MG/ML 1 ML VIAL IV ONE; +GABAPENTIN 300 MG CAP PO PRN; -HEPARIN SODIUM,PORCINE/PF 5,000 UNIT/0.5 ML SYRINGE SQ PRN; -HYDROmorphone 0.5 MG/0.5 ML SYRINGE IVP PRN; -LIDOCAINE 1% (10MG/ML) FOR IV START INTRADERMA PRN; +MELOXICAM 7.5 MG TAB PO PRN; +ONDANSETRON 4 MG/2 ML VIAL IVP PRN; +TRANEXAMIC 1,000 MG/100ML-NACL 1,000 MG in SALINE 1 100ML.BAG IVPB PRN; +fentaNYL (PF) 50 MCG/ML 2 ML AMP IV PRN
[2022-09-05 10:17] LABS: Glucose,Whole Blood 91 mg/dL (70-110)
[2022-09-05] MEDS ORDERED: MIDAZOLAM 2 MG/2 ML VIAL IVP ONE (11:24)
[2022-09-05] MEDS ORDERED: PHENYLEPHRINE-0.9% NACL SYG 1,000 MCG/10 ML SYRINGE ONE (12:07)
[2022-09-05] MEDS ORDERED: ePHEDrine 50 MG/ML 1 ML VIAL ONE (12:07)
[2022-09-05] MEDS ORDERED: SUCCINYLCHOLINE CHLORIDE 200 MG/10 ML VIAL IV ONE (12:07)
[2022-09-05] MEDS ORDERED: PROPOFOL 10 MG/ML 20 ML VIAL IV ONE (12:07)
[2022-09-05] MEDS ORDERED: fentaNYL (PF) 50 MCG/ML 2 ML AMP ONE (12:07)
[2022-09-05] MEDS ORDERED: LIDOCAINE 2% INJ 20 MG/ML (2 ML VIAL) ONE (12:07)
[2022-09-05] MEDS ORDERED: TRANEXAMIC 1,000 MG/100ML-NACL PREMIX BAG ONE (12:07)
[2022-09-05] MEDS ORDERED: VANCOMYCIN 1,000 MG VIAL MISCELLANE ONE (13:19)
[2022-09-05 13:55] VITALS: TEMP 97
--- NOTE | 2022-09-05 14:36 | OP ---
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 PROCEDURES PERFORMED: 1. Revision left reverse total shoulder arthroplasty to left shoulder hemiarthroplasty. 2. Left glenoid bone grafting. ANESTHESIA: General endotracheal. ESTIMATED BLOOD LOSS: 50 mL. TOURNIQUET: None. DRAINS: None. COMPLICATIONS: None apparent. DISPOSITION: Postanesthesia care unit. INDICATIONS FOR PROCEDURE: Gregg is a very pleasant 81-year-old male who underwent left reverse total shoulder arthroplasty by myself approximately 2 months ago. He unfortunately had dissociated glenosphere which was revised on July 29. Unfortunately, Gregg has re-dissociated the glenosphere. He again does not recall how this happened. However, he did have a hernia repair surgery in the past month and his did notice after that surgery that something was different. He has again remarkably had very little discomfort when I see him in the office. At this point, this has become very frustrating for Gregg. He has very low demand. He has had very little pain with the glenosphere dissociated. Recommendation at this point was for revision of the reverse total shoulder arthroplasty to a left hemiarthroplasty. This procedure was discussed with Gregg and his family in detail. The risks of procedure were also discussed. These risks included but were not limited to risk of infection, nerve damage, bleeding, pain, and deep infection. There is also a very small risk of deep vein thrombosis which could lead to fatal pulmonary embolism. The patient understood the risks. All of his questions with regard to the risks of procedure were answered to his satisfaction. Appropriate informed consent was obtained. DESCRIPTION OF PROCEDURE: The patient was identified in preoperative holding area. Surgical site was marked by both patient and myself. He was given 2 g of Ancef IV for prophylactic purposes. He was then transported to the operative suite. He was placed supine on the operating room table. General anesthetic was then administered and dosed per the Anesthesia without apparent complication. The patient was then placed into the beach chair, well-padded in preparation for surgery. Great care was taken to ensure the cervical spine is in neutral alignment, well-padded and maintained that way throughout the operative procedure. Great care was also taken to ensure that his legs were appropriately padded as well. The patient's left upper extremity was then prepped and draped in usual sterile fashion. Standard surgical pause undertaken to ensure that we were operating the correct site and that appropriate preoperative antibiotics had been given. All staff in the room were in agreement, and we proceeded. The acromion, AC joint, clavicle and coracoid were marked with a surgical pen. The previous incision was also identified. The previous incision was then opened with a 10-blade scalpel. Dissection was carried down sharply to the deltoid fascia. The 0 Vicryl sutures in the deltopectoral interval were identified readily. The deltopectoral interval was then opened. Once this was done, the glenosphere was just underneath the anterior deltoid. The glenosphere was then removed. I then used Brown retractor to hold and expose the proximal humerus. I then utilized to remove the Jackson taper from the tray and dissociated the tray from the stem. This was fairly easily done as well. I then put a Phuongattman retractor in the posterior glenoid rim. The Lara stand was then brought in. Any scar tissue removed from around the base plate. I again checked the seating of the screw. The central screw was fully seated. Again, I was able to rotate the scapula through the screwdriver. I then utilized the guide, it was double-checked to ensure the central screw was firmly seated. There was no evidence of any fracture on the glenoid. The guide to ensure the central screw was fully seated showed that was flushed and that the screw was fully seated. At this point, I removed the glenosphere, removed the central screw and 4 peripheral screws. I then used the glenosphere extraction device to remove the glenosphere and it was removed. No fracturing of the glenoid was perceived upon removal of the base plate. I then utilized a pulse lavage to thoroughly irrigate the glenoid and the wound. This was done via pulse lavage with antibiotic added. I then bone grafted the area of the central screw, the peripheral screws with cancellous chips. A 15 mL of cancellous chips were utilized to bone graft the glenoid. This was then impacted with a bone tamp. I then proceeded with placement of humeral head onto the real stem. The real stem had been implanted in 30 degrees of retrotorsion. I utilized a 46 x 21 x 50 [employer] humeral head. This was then impacted onto a dry Jackson taper. The shoulder was then reduced. Again, it was thoroughly irrigated with sterile saline solution with antibiotic added via pulse lavage. Approximately 500 mg of vancomycin powder was then placed deep. The deltopectoral was then reapproximated utilizing 0 Vicryl interrupted suture. The subcutaneous tissue was then irrigated with sterile saline solution via pulse lavage with antibiotic added. The remaining 500 mg of vancomycin powder was then placed in the subcutaneous. The subcutaneous tissue was closed with 2-0 Vicryl interrupted suture and the skin was closed with a running 3-0 Quill suture. Dermabond was then applied to the incision. A sterile compressive dressing was applied. The patient's left upper extremity was placed in a standard sling. All sponge and needle counts were deemed correct prior to closure. The patient tolerated the procedure without apparent complication. He was transferred to recovery room in stable condition. I did inspect the Jackson taper on the glenosphere as well as the glenoid once it was extracted. It seems that the Jackson taper was not grabbing like it should. I was able to rotate through the Jackosn taper, which usually I am not able to. This was suspicious somehow the Jackson taper was defective. I did think it was prudent to have the [employer] outside energy sales representatives send these components for analysis by their engineers of [employer] and this was ensured by the rep that it would be done. MMODL / IJN: [id number] /
[2022-09-05 15:28] VITALS: RESP 14
[2022-09-05 15:29] VITALS: BP 122/67; PULSE 81
--- NOTE | 2022-09-05 19:14 | P.ANPRN ---
Procedure Note - Anesthesia - Nerve Block Performed Left Interscalene Single Time Out Performed: Yes Date of Procedure: 09/05/22 Procedure Start Time: Procedure Stop Time: Location of Patient: PreOp Indication: Acute Post-Operative Pain, Requested by Surgeon Sedation Type: Sedate with meaningful contact maintained Preparation: Sterile Prep Position: Supine Needle Types: Pajunk Needle Gauge: 21 Ultrasound used to visualize needle placement: Yes Ultrasound used to observe medication spread: Yes Blood Aspirated: No Pain Paresthesia on Injection Noted: No Resistance on Injection: Normal Image Stored and Saved: Yes Events: Uneventful and Well Tolerated (Ropivacaine 0.5% 20 mL plus dexamethasone 4 mg)
== END 2022-09-05 15:20 | disposition home or self-care (01) ==
LOC: OR 08:05
PROVIDERS: ATTEND Orthopaedic Surgery Sports Medicine
DX: T84.028A Dislocation of other internal joint prosthesis, initial encounter (principal); I10 Essential (primary) hypertension; E11.9 Type 2 diabetes mellitus without complications; Z86.59 Personal history of other mental and behavioral disorders; Z88.2 Allergy status to sulfonamides; Z96.612 Presence of left artificial shoulder joint; Z98.890 Other specified postprocedural states; Z79.899 Other long term (current) drug therapy; Z79.84 Long term (current) use of oral hypoglycemic drugs; X58.XXXA Exposure to other specified factors, initial encounter; Y93.89 Activity, other specified; Y92.89 Other specified places as the place of occurrence of the external cause; Y99.8 Other external cause status
CPT/HCPCS: 23474; 64415; 15734; 17999; 11772; C1776; C1713; J2250; J3370; J0330; J1100; J0690; J2405; J3010; J2704; J2001; J2371